=== PATIENT | male | born 1970 | race Caucasian/White ===

== ENCOUNTER 2018-12-20 14:34 | Outpatient (CLI) | payer BC, SELFPAY ==
[2018-12-24 06:02] LABS: Testosterone, Total 439 ng/dL (240-950)
== END 2018-12-20 14:54 ==
PROVIDERS: PCP Emergency Medicine; Visit Provider Urology
DX: E29.1 Testicular hypofunction (principal)
CPT/HCPCS: 36415; 84403

== ENCOUNTER 2019-01-27 14:19 | Outpatient (CLI) | payer BC, SELFPAY ==
[2019-01-30 09:45] LABS: Testosterone, Total 1230 ng/dL (240-950)
== END 2019-01-27 14:39 ==
PROVIDERS: PCP Emergency Medicine; Visit Provider Urology
DX: E29.1 Testicular hypofunction (principal)
CPT/HCPCS: 36415; 84403

== ENCOUNTER 2020-08-12 08:49 | Outpatient (CLI) | payer BC, SELFPAY ==
[2020-08-16 01:04] LABS: Patient Race White; SARS-CoV-2 RNA Undetected (Undetected); SARS-CoV-2 Specimen Source Nasal
== END 2020-08-12 09:09 ==
PROVIDERS: PCP Emergency Medicine; Visit Provider Emergency Medicine
DX: Z11.59 Encounter for screening for other viral diseases (principal)
CPT/HCPCS: U0003

== ENCOUNTER 2022-03-29 14:37 | Outpatient (CLI) | payer BC, SELFPAY ==
[2022-03-29 14:27] LABS: Hemoglobin A1C 5.3 % (<5.7)
[2022-03-29 15:20] LABS: Anion Gap 7.4 mmol/L (3-11); BUN 16 mg/dL (7-18); CO2 26.6 mmol/L (21.0-32.0); CREATININE 1.4 mg/dL (0.70-1.30); Calcium 8.5 mg/dL (8.5-10.1); Calculated LDL 164 mg/dL (<100); Chloride 102 mmol/L (98-107); Cholesterol 258 mg/dL (<200); Estimated GFR 52.81 (mL/min/1.73m2); Glucose 118 mg/dL (74-106); HDL Cholesterol 46 mg/dL (40-60); Potassium 3.7 mmol/L (3.5-5.1); Sodium 136 mmol/L (136-145); TSH 2.06 uIU/mL (0.36-3.74); Triglyceride 243 mg/dL (<150)
[2022-03-29 23:05] LABS: PSA, Diagnostic 0.5 ng/mL (<=3.5)
[2022-03-29 23:16] LABS: ALT 84 U/L (16-63); AST 54 U/L (15-37); Albumin 3.8 g/dL (3.4-5.0); Alkaline Phosphatase 72 U/L (46-116); Bilirubin, Direct 0.2 mg/dL (0.0-0.2); Bilirubin, Total 0.9 mg/dL (0.2-1.0); Total Protein 7.9 g/dL (6.4-8.2)
[2022-05-04 11:03] LABS: Lab Add On Test Done
== END 2022-03-29 14:38 | disposition home or self-care (01) ==
PROVIDERS: Emergency Medicine; PCP Family Medicine; Visit Provider Urology
DX: E11.9 Type 2 diabetes mellitus without complications (principal); E78.5 Hyperlipidemia, unspecified; I10 Essential (primary) hypertension; E03.9 Hypothyroidism, unspecified; E29.1 Testicular hypofunction; R97.20 Elevated prostate specific antigen [PSA]
CPT/HCPCS: 36415; 80048; 80061; 80076; 83036; 84153; 84443

== ENCOUNTER 2022-07-03 06:19 | Day surgery (SDC) | payer BC, SELFPAY ==
--- NOTE | 2022-07-03 06:36 | COLE_ITS ---
Colonoscopy Report Date of procedure: 07/03/22 Pre-op diagnosis general: Colon Cancer Screening Post-op diagnosis procedure note: other (colorectal polyps and diverticulosis) Procedure: Colonoscopy with polypectomy Surgeon: Glenna Scott Anesthesia Type: General:No Airway Estimated blood loss (mL): 3 Pathology: other (cecal polyps x2, ascening polyps x2, Transverse polyps x2, descending polyp) Complications: None Disposition: same day Indications: The patient? is a pleasant? 52-year-old male who is here to discuss another screening colonoscopy. ? He denies any changes in bowel habits, melena, hematochezia, unintentional weight loss or family history of colon cancer.? The procedure and risks were discussed.? The prep was reviewed in detail.? Risks, benefits and complications have been reviewed. Complications include but are not limited to bleeding, pain, perforation, missed small lesion/polyp, sore throat, aspiration and adverse reaction to the medications. Questions were entertained and answered to their satisfaction and they wished to proceed. No guarantees were given or implied. Prep: Miralax/Dulcolax Procedure Start Time: 07:29 Procedure End Time: 08:01 Retraction Time: 27 minutes Findings: multiple small sessile polyps Mild napoles diverticulosis Procedure Description: After informed consent was obtained the patient was taken to the procedure room and placed in a left decubitous position. Monitors were applied and a time out was done. The patients name, date of , procedure, allergies to medications and metal in their body was reviewed. The patient was then sedated. Once sedated and comfortable a rectal exam was done. External exam was normal. Internal exam revealed a normal sphincter tone and no palpable masses. The prostate felt smooth. The scope was then introduced and retro-flexed. No internal hemorrhoids, polyps or masses were identified on retro-flexion. The scope was then advanced to the cecum without difficulty. The ileocecal vlave and appendiceal orifice were identified. The prep was good. The scope was then slowly retracted over 27 minutes back into the rectum. Polyps were removed with cold forceps in the cecum, ascending and transverse colon and with a cold snare in the descending colon. There was mild napoles diverticulosis noted. The scope was removed and the patient was woken up and taken back to Same day surgery in stable condition. The patient tolerated the procedure well and there were no immediate com plications.
--- NOTE | 2022-07-03 06:38 | W.PM.DSUDISC ---
Discharge Plan Disposition Patient Disposition: HOME Condition: Good Discharge Details Reason For Visit: colonoscopy Attending Provider: Glenna Scott Primary Care Provider: Roxanna oSsa Home Meds and New Rx's Prescriptions: Continued testosterone enanthate 50 mg/0.5 mL auto-injector 50 mg subcut QWEEK amlodipine 5 mg tablet 5 mg PO DAILY Qty: 90 3RF losartan 100 mg tablet 100 mg PO DAILY Qty: 90 3RF Discontinued bisacodyl [Dulcolax (bisacodyl)] 5 mg tablet,delayed release (DR/EC) 5 mg PO ONCE Qty: 4 0RF Rx Instructions: Take according to provider's instructions for colonoscopy prep. polyethylene glycol 3350 17 gram/dose powder 17 g PO ONCE Qty: 238 0RF Rx Instructions: To be taken as directed by prescriber's office for colonoscopy prep. Discharge Instructions Instructions: Colorectal Polyps (DC), Diverticulosis (DC) Additional Instructions: Findings:5 polyps Diverticula Follow up: 3-5 years depending on the pathology results Please call if you develop: fevers >101.5 Nausea or Vomiting Abdominal pain that is not transient Rectal bleeding that is more then a tbsp A hard abdomen and inability to pass gas DAY SURGERY UNIT POST ENDOSCOPY INSTRUCTIONS Instructions for everyone who is given Anesthesia: For your safety, please do the following for the next 24 Hours: a. Do not drive or operate dangerous equipment b. Do not drink alcohol beverages or use any recreational drugs for the first 24 hours or while taking pain medications. The medications in your body may have a reaction that can be dangerous. c. Do not make any important decisions or sign any important papers 1. Generally there are no restrictions on your activity after a day or so has gone by, but you may feel a bit fatigued for a few days. 2. After you arrive home you may have a light meal and return to a normal diet as you can tolerate it without feeling sick to your stomach. 3. After surgery, you may feel pain or discomfort. This should be only transient, but if it persists please contact your doctor. 4. If there are any questions regarding the findings of your procedure, please feel free to contact your doctor. 6. If you are unable to contact your doctor with a problem, contact the hospital at [phone]. 7. Continue all your regular medications unless directed otherwise. I understand the above instructions and have no questions. Signature of Patient or Responsible Adult Escort Date/Time Name of Responsible Adult Escort Signature of Nurse Date/Time Activity:: Activity as Tolerated Diet:: high fiber diet Discharge Orders Discharge Orders: Discharge Order (Routine); Ordered 07/03/22 Ordered By: Glenna Scott
[2022-07-03 06:46] VITALS: BP 153/100; PULSE 76; RESP 16; TEMP 36.7; O2SAT 97
[2022-07-03] MEDS: Normal Saline 1,000 ML 80 ML IV (07:00)
--- NOTE | 2022-07-03 07:04 | W.ANESPRE ---
General Info Date of Service Date Performed: 07/03/22 Height: 6 ft 1 in Weight: 129.5 kg Body Mass Index (BMI): 37.6 Surgical Procedure: Operation Date: 07/03/22 07:35 Proposed Procedure Side Surgeon p Blaze Scott MD Meds Allergies and Home Medications Allergies Allergy/AdvReac Type Severity Reaction Status Date / Time lisinopril AdvReac Mild cough Unverified 06/30/22 10:57 Home Medication Medication Instructions Recorded amlodipine 5 mg tablet 5 mg PO DAILY #90 tabs 04/05/22 losartan 100 mg tablet 100 mg PO DAILY #90 tab-caps 04/05/22 bisacodyl 5 mg tablet,delayed 5 mg PO ONCE #4 tabs 06/06/22 release (Dulcolax (bisacodyl)) polyethylene glycol 3350 17 17 g PO ONCE #238 grams 06/06/22 gram/dose oral powder testosterone enanthate 50 mg/0.5 50 mg subcut QWEEK 06/06/22 mL subcutaneous auto-injector Current Visit Medications: Current Medications Generic Name Dose Route Start Last Admin Trade Name Freq PRN Reason Stop Dose Admin Hyoscyamine Sulfate 0.125 mg 07/03/22 06:39 Hyoscyamine 0.125 Mg Sl/Oral/Chew SL DIRECTED PRN Sodium Chloride 1,000 mls @ 80 mls/hr 07/03/22 06:00 07/03/22 07:00 Saline 1000ml Bag IV 07/17/22 23:59 80 mls/hr INFUSION AMAURY Administration IV Miscellaneous Supplies 1 each 07/03/22 06:00 Iv Access IV 07/30/22 23:59 DIRECTED AMAURY Ondansetron HCl 4 mg 07/03/22 06:39 Ondansetron 4 Mg/2 Ml Vial IVP Q4H PRN PRN Nausea / Vomiting Sodium Chloride 0 ml 07/03/22 06:00 Normal Saline Flush 10 Ml Syr IV 07/30/22 23:59 PRN PRN Sodium Chloride 0 ml 07/03/22 06:00 Normal Saline 10 Ml Vial IJ 07/30/22 23:59 DIRECTED PRN Sterile Water 0 ml 07/03/22 06:00 Water,Injection,Sterile 10 Ml Vial IJ 07/30/22 23:59 DIRECTED PRN PFSH Active Problems Active Problems: Problem Status Onset Code Essential hypertension 12/29/17 I10 Hypogonadism in male 09/28/17 E29.1 Pituitary adenoma 09/28/17 D35.2 COVID-19 U07.1 Actinic keratoses L57.0 Obesity E66.9 Chronic kidney disease, stage 3 N18.30 Hyperlipidemia E78.5 Elevated liver enzymes R74.8 Screening for colon cancer Z12.11 Surgical History Surgical History (Updated 07/03/22 @ 06:46 by Danielle Frank) H/O arthroscopic knee surgery right Tobacco Smoking/Tobacco Use Status: Current-Occasional Tobacco Type: smokeless tobacco Smokeless tobacco user: chewing tobacco Second hand exposure: No Alcohol Alcohol Intake: current Alcohol intake frequency: a few times a week Alcohol type: hard liquor Substance Use Substance use: Never Substance use type: does not use Vital Signs and Lab Results Vital Signs Most Recent Vital Signs in EMR: Most Recent Vital Signs Temp Pulse Resp BP Pulse Ox 36.7 C 76 16 153/100 H 97 07/03/22 06:46 07/03/22 06:46 07/03/22 06:46 07/03/22 06:46 07/03/22 06:46 Lab Results Blood Type / Crossmatch: No Data to Display Complete Blood Count: No Data to Display Complete Metabolic Panel: No Data to Display Liver Function Panel: No Data to Display Coagulation Panel: No Data to Display Cardiac Panel: No Data to Display Arterial Blood Gas: No Data to Display Venous Blood Gas: No Data to Display Pancreas Panel: No Data to Display Thyroid Panel: No Data to Display Infectious Disease: No Data to Display Blood Cultures: No Data to Display Toxicology Panel: No Data to Display Anesthesia Assessment and Plan Anesthesia History Personal History: No History of Anesthesia Complications Family History: No Family History of Anesthesia Complications Exercise Tolerance Exercise Tolerance: Metabolic Equivalents>4 Pertinent Negatives Pertinent Negatives: No Symptoms of GERD, No Major Cardiovascular Symptoms or Complaints, No Major Pulmonary Symptoms or Complaints (Wears CPAP everynight ) and No History of CVA/TIA Cardiac & Pulmonary Exam Cardiac Exam: Normal S1/S2 Heart Sounds Pulmonary Exam: Clear Bilateral Breath Sounds Implantable Cardiac Device Does patient have a Pacemaker or an ICD?: No Airway Exam Known Difficult Airway: No Mallampati Class: 4 Mouth Opening: Narrow (< 3cm) Thyromental Distance: Less than 3 cm Facial Hair: Full Asif Neck Range of Motion: Limited ROM Neck Circumference: Thick Teeth Condition: Normal Dentition ASA Classification ASA Score: ASA 2 Emergency Case?: No NPO Status NPO Status: NPO Clears >2 hours, Solids >8 hours Anesthesia Plan Resuscitation Status: Full Code Anesthesia Technique: General Anesthesia Airway Planned: Natural Airway Monitors Used: Standard Monitors
[2022-07-03 07:07] VITALS: BMI 37.6
--- NOTE | 2022-07-03 07:36 | BOWEL_PTH ---
PATIENT: Michael Herrera LOC: [facility] U#:[id number] AGE/SX: 52/M ROOM: RE07/03/[address]: Glenna Scott MD : [id number] BED: DIS: 07/03/2022 SPEC #: [id number] RECD: 07/03/22 12:14 STATUS: FELICIANO RE #: [id number] ORI: 07/03/22 07:[address]: Glenna Scott DEPT: Surgical Specimen RECD BY: Jerrica Germain ENTERED: 07/03/22 12:17 SP TYPE: Bowel OTHR DR: Roxanna Sosa, PhD SMALL EQUIPMENT OPERATOR Tissues: 1 - BIOPSY BOWEL 2 - BIOPSY BOWEL 3 - BIOPSY BOWEL 4 - BIOPSY BOWEL Procedures: GROSS AND MICRO LEVEL 4 Comments: [id number]
[2022-07-03 08:15] VITALS: BP 152/83; PULSE 71; RESP 18; TEMP 36.3; O2SAT 97
--- NOTE | 2022-07-03 08:16 | W.ANESPOSTOP ---
Postoperative Evaluation Date, Time and Location Date Performed: 07/03/22 Time Performed: 08:16 Patient Location: Day Surgery Unit Vital Signs Most Recent Imported Vital Signs: Most Recent Vital Signs Temp Pulse Resp BP Pulse Ox 36.7 C 76 16 153/100 H 97 07/03/22 06:46 07/03/22 06:46 07/03/22 06:46 07/03/22 06:46 07/03/22 06:46 Most Recent Manually Entered Vital Signs: Adult Blood Pressure: 152/83 Heart Rate: 67 Respirations: 12 Oxygen Saturation (%): 97 Temperature (C): 36.3 C Pain Score (0-10 Scale): 0 Pain Score Most Recent Pain Score: Most Recent Pain Score Pain Level 0 07/03/22 06:46 Assessment Mental Status: Awake (Alert & Oriented to Patient Baseline) Airway and Respiratory Function: Patent airway with normal (patient baseline) respiratory exam Cardiovascular Function: Hemodynamically Stable Hydration Status: Adequately Hydrated Nausea & Vomiting: No Nausea or Vomiting Pain: Pt. Denies Any Pain Peripheral Nerve Block: Patient did not receive a nerve block
[2022-07-03 08:17] VITALS: BP 152/83; PULSE 67; RESP 12; TEMPC 36.3; O2SAT 97
[2022-07-03 08:30] VITALS: BP 145/100; PULSE 64; RESP 18; TEMP 36.4; O2SAT 98
== END 2022-07-03 08:55 | disposition home or self-care (01) ==
PROVIDERS: PCP Nurse Practitioner; Visit Provider Surgery
PROC: 0DJD8ZZ Inspection of Lower Intestinal Tract, Via Natural or Artificial Opening Endoscopic (ICD-10-PCS; CPT 45378; principal; 2022-07-03 07:30)
DX: Z12.11 Encounter for screening for malignant neoplasm of colon (principal); K63.5 Polyp of colon; K57.30 Diverticulosis of large intestine without perforation or abscess without bleeding; K63.89 Other specified diseases of intestine
CPT/HCPCS: 45385; 45380; 88305; J2250; J2704

== ENCOUNTER 2023-01-03 09:38 | Outpatient (CLI) | payer BC, SELFPAY ==
--- OUTSIDE RECORDS SUMMARY | 2023-01-03 09:40 | XMS_ITS ---
Author Name Clarissa Middleton Address [address], [place] [id number] Organization [facility] Address [address], [place] [id number] Care Team Providers Care Aircraft Time Clerk Name Role Phone Clarissa Middleton Unavailable [phone] PROBLEMS Type Condition ICD9-CM Code MHV50-DY Code Onset Dates Condition Status SNOMED Code Problem Hypertension I10 Active 87709730 Problem Metabolic syndrome E88.81 Active 96276 2006 Problem Erectile dysfunction N52.9 Active 860 752931 Problem Phimosis 605 Active 282519460 Problem Essential hypertension I10 Active Problem Erectile Dysfunction 607.84 Active 860 753441 Problem Hypogonadism in male E29.1 Active Problem Hypogonadism, testicular 257.2 Active 82202071 Problem 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 50134879 Problem Phimosis N47.1 Active 317095496 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 62425670 Problem Testicular hypofunction E29.1 Active ALLERGIES No Known Allergies ENCOUNTERS Encounter Location Date Diagnosis [facility] [address] [id number] Jun, Hypogonadism in male E29.[address] [facility] [address] [id number] Jun, Hypogonadism in male E29.[address] [facility] [address] [id number] Mar, Testicular hypofunction E29.[address] [facility] [address] [place] [address] [id number] Dec, Hypogonadism in male E29.1 [facility] [address] [place] [address] [id number] Jun, [facility] [address] [place] [address] [id number] May, Hypogonadism in male E29.1 [facility] [address] [place] [address] [id number] Mar, Hypogonadism in male E29.1 [facility] [address] [place] [address] [id number] Mar, [facility] [address] [place] [address] [id number] Nov, Hypogonadism in male E29.1 [facility] [address] [place] [address] [id number] Nov, Hypogonadism in male E29.[address] [facility] [address] [id number] Nov, Hypogonadism in male E29.1 [facility] [address] [place] [address] [id number] Mar, [facility] [address] [id number] Mar, Hypogonadism in male E29.1 and Family history of prostate cancer Z80.42 [facility] [address] [place] [address] [id number] Mar, 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 and Prostate cancer screening Z12.[address] [facility] [address] [id number] Aug, 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 and Hypogonadism in male E29.[address] [facility] [address] [place] [address] [id number] Aug, Hypogonadism in male E29.1 [facility] [address] [place] [address] [id number] Mar, 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 ; Prostate cancer screening Z12.5 ; Metabolic syndrome E88.81 and Essential hypertension I10 [facility] [address] [place] [address] [id number] Mar, [facility] [address] [place] [address] [id number] January, [facility] [address] [place] [address] [id number] Nov, 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 [facility] [address] [id number] Nov, Testicular hypofunction E29.1 [facility] [address] [place] [address] [id number] Oct, [facility] [address] [place] [address] [id number] Oct, 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 [facility] [address] [id number] May, [facility] [address] [id number] Mar, 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 [facility] [address] [id number] Mar, 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 ; 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 ; Phimosis N47.1 ; Erectile dysfunction N52.9 ; Prostate cancer screening Z12.5 ; Metabolic syndrome E88.81 and Hypertension I10 [facility] [address] [id number] Mar, 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 and Long-term use of high-risk medication Z79.899 [facility] [address] [id number] Dec, [facility] [address] [id number] Nov, Erectile dysfunction N52.[address] [facility] [address] [id number] Jul, 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 ; Phimosis N47.1 ; 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 ; Erectile dysfunction N52.9 ; Hypertension I10 and Metabolic syndrome E88.81 [facility] [address] [id number] Jul, [facility] [address] [place] [address] [id number] Jun, Erectile dysfunction N52.9 [facility] [address] [place] [address] [id number] Jun, [facility] [address] [place] [address] [id number] Jul, Hx of hypogonadism Z86.39 ; Erectile dysfunction N52.9 ; 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 and Hypertension I10 [facility] [address] [place] [address] [id number] Jul, [facility] [address] [place] [address] [id number] Jun, Hypogonadism in male 257.2 and Low testosterone 257.2 [facility] [address] [place] [address] [id number] Nov, [facility] [address] [place] [address] [id number] Jun, [facility] [address] [place] [address] [id number] Jun, Hypogonadism, testicular 257.2 [facility] [address] [place] [address] [id number] May, [facility] [address] [place] [address] [id number] May, [facility] [address] [place] [address] [id number] Jun, Hypogonadism, testicular 257.2 [facility] [address] [place] [address] [id number] Mar, Hypogonadism, testicular 257.2 [facility] [address] [place] [address] [id number] Mar, Hypogonadism, testicular 257.2 [facility] [address] [place] [address] [id number] Nov, Erectile Dysfunction 607.84 and Hypogonadism, testicular 257.2 [facility] [address] [place] [address] [id number] Aug, [facility] [address] [place] [address] [place] [address] [id number] Aug, [facility] [address] [place] [address] [id number] Jun, [facility] [address] [place] [address] [id number] Jun, Hypogonadism, testicular 257.2 and Phimosis 605 [facility] [address] [place] [address] [id number] Jun, Hypogonadism, testicular 257.2 [facility] [address] [place] [address] [id number] Dec, [facility] [address] [place] [address] [id number] Nov, Hypogonadism, testicular 257.2 and Phimosis 605 [facility] [address] [place] [address] [id number] Oct, Posthitis 607.1 ; Hypogonadism, testicular 257.2 and Dysuria 788.[address] [facility] [address] [place] [address] [id number] Oct, IMMUNIZATIONS No Known Immunizations SOCIAL HISTORY Qualifiers Date Current Smoker REASON FOR REFERRAL FUNCTIONAL STATUS PLAN OF CARE Activity Details VITAL SIGNS Height 73 in 2022-06-12 Height 73 in 2021-04-25 Height 73 in 2020-04-01 Height 73 in 2019-03-25 Height 73 in 2018-03-26 Height 73 in 2016-07-20 Height 73 in 2015-07-15 Height 73 in 2014-06-29 Height N/A in 2013-06-26 Height N/A in 2012-12-26 Height 73 in 2011-10-25 Weight 285 lbs 2022-06-12 Weight 280 lbs 2021-04-25 Weight 280 lbs 2020-04-01 Weight 286.8 lbs 2019-03-25 Weight 287 lb 2 oz lbs 2018-03-26 Weight 279.0 lbs 2016-07-20 Weight 274 lb 8 oz lbs 2015-07-15 Weight 268 lbs 2014-06-29 Weight 261.8 lbs 2013-06-26 Weight 263 lbs 2011-10-25 Temperature 97.0 degrees Fahrenheit Temperature 97.2 degrees Fahrenheit Temperature 96.9 degrees Fahrenheit Temperature Temporal:97.7 degrees Fahrenheit 2018-03-26 Temperature 98.8 degrees Fahrenheit Temperature 97.0 degrees Fahrenheit Heart Rate 82 /min 2022-06-12 Heart Rate 86 /min 2021-04-25 Heart Rate 82 /min 2020-04-01 Heart Rate 100 /min 2019-03-25 Heart Rate 79 /min 2018-03-26 Heart Rate 69 /min 2016-07-20 Heart Rate 82 /min 2015-07-15 Heart Rate 82 /min 2014-06-29 Heart Rate 72 /min 2013-06-26 Heart Rate 72 /min 2011-10-25 Oximetry 98 2022-06-12 Oximetry 99 2021-04-25 Oximetry 98 2020-04-01 Oximetry 99 2019-03-25 Oximetry 100 2018-03-26 Oximetry 100 2015-07-15 Respiratory Rate 14 /min 2022-06-12 Respiratory Rate 16 /min 2018-03-26 Respiratory Rate 16 /min 2012-12-26 Respiratory Rate 18 /min 2011-10-25 BMI 37.60 kg/m2 2022-06-12 BMI 36.94 kg/m2 2021-04-25 BMI 36.94 kg/m2 2020-04-01 BMI 37.83 kg/m2 2019-03-25 BMI 37.88 kg/m2 2018-03-26 BMI 36.81 kg/m2 2016-07-20 BMI 36.21 kg/m2 2015-07-15 BMI 35.35 kg/m2 2014-06-29 BMI 34.54 kg/m2 2013-06-26 BMI 34.69 kg/m2 2011-10-25 Blood pressure systolic 140 mm Hg Blood pressure diastolic 92 mm Hg 2021-03 MEDICATIONS Medication Instructions Dosage Frequency Start Date End Date Duration Status Testosterone Cypionate 200 MG/ML Intramuscular q 2 weeks 1 ml Jun, 30 days Active Losartan Potassium 100 MG take 1 tablet by mouth once daily 90 Active amLODIPine Besylate 5 MG 30 Active PROCEDURES Procedure Date Ordered Result Body Site URINALYSIS NONAUTO W/O SCOPE Jun 12, 2022 URINALYSIS NONAUTO W/O SCOPE Jun 29, 2014 URINALYSIS, DIPSTICK W/MICROSCOP Jul 20, 2016 URINALYSIS, AUTO W/SCOPE March 25, 2019 URINALYSIS NONAUTO W/O SCOPE April 25, 2021 URINALYSIS NONAUTO W/O SCOPE Oct 25, 2011 URINALYSIS, DIPSTICK W/MICROSCOP Jul 15, 2015 URINALYSIS NONAUTO W/O SCOPE April 01, 2020 URINALYSIS, DIPSTICK W/MICROSCOP March 26, 2018 BLADDER SCAN Oct 25, 2011 RESULTS Name Result Date Reference Range URINALYSIS COMPLETE 2022-06-12 COLOR YELLOW YELLOW CLARITY CLEAR CLEAR SPECIFIC GRAVITY 1.020 1.000-1.030 pH 6.0 5.0-8.0 PROTEIN NEGATIVE NEGATIVE GLUCOSE NEGATIVE NEGATIVE KETONES NEGATIVE NEGATIVE UROBILINOGEN 0.2 0.2 E.U./DL BILIRUBIN NEGATIVE NEGATIVE BLOOD TRACE-INTACT NEGATIVE LEUKOCYTES NEGATIVE NEGATIVE NITRITES NEGATIVE NEGATIVE RBCs 0-3 0-3 SQ EPITHELIAL CELLS 0-3 0-3 CLUE CELLS NONE SEEN RTE CELLS 0-3 TRANSITIONAL EPIs 0-3 BACTERIA NONE SEEN NONE SEEN CRYSTALS NONE SEEN HYALINE CASTS NONE SEEN GRANULAR CASTS NONE SEEN RBC CASTS NONE SEEN WBC CASTS NONE SEEN WAXY CASTS NONE SEEN CELLULAR CASTS NONE SEEN YEAST NONE SEEN TRICHOMONADS NONE SEEN SPERMATOZOA SEEN NONE SEEN URINE CULTURE NO NO [facility] (URO) 2022-06-12 Color Yellow Clarity Clear Bilirubin neg Ketones neg Specific [place] 1.020 Blood trace-lysed Glucose neg ph 6.0 Protein neg Leukocytes neg Nitrates neg Uro 0.2 Leukocytes TESTOSTERONE, FREE & TOTAL ([id number]) 06-12 Testosterone, Serum [phone] Free Testosterone(Direct) 5.0 7. 2-24.0 PSA - DIAGNOSTIC 2022-03-29 PROSTATE SPECIFIC ANTIGEN DIAGNOSTIC PSA HEADER URINALYSIS DIP w/REFLEX MICRO 2021-04-25 COLOR Yellow YELLOW CLARITY Cloudy CLEAR SPECIFIC GRAVITY 1.025 1.000-1.030 pH 5.5 5.0-8.0 PROTEIN Negative NEGATIVE GLUCOSE Negative NEGATIVE KETONES Negative NEGATIVE UROBILINOGEN 1.0 E.U./dL 0.2 E.U./DL BILIRUBIN Negative NEGATIVE BLOOD Negative NEGATIVE LEUKOCYTES Negative NEGATIVE NITRITES Negative NEGATIVE [facility] (URO) 2021-04-25 Color Yellow Clarity Clear Bilirubin neg Ketones neg Specific [place] 1.025 Blood small Glucose neg ph 5.5 Protein trace Leukocytes neg Nitrates neg Uro 0.2 Leukocytes PSA - DIAGNOSTIC 2021-04-21 PSA (DIAGNOSTIC) 0.526 <=4.000 TESTOSTERONE, FREE & TOTAL ([id number]) 04-21 Testosterone, Serum [phone] Free Testosterone(Direct) 2.7 7. 2-24.0 URINALYSIS COMPLETE 2020-04-01 COLOR Sarahy YELLOW CLARITY Clear CLEAR SPECIFIC GRAVITY 1.025 1.000-1.030 pH 5.5 5.0-8.0 PROTEIN Trace NEGATIVE GLUCOSE Negative NEGATIVE KETONES Negative NEGATIVE UROBILINOGEN 0.2 E.U./dL 0.2 E.U./DL BILIRUBIN Negative NEGATIVE BLOOD Trace-intact NEGATIVE LEUKOCYTES Negative NEGATIVE NITRITES Negative NEGATIVE RBCs 0-3 0-3 SQ EPITHELIAL CELLS 0-3 0-3 CLUE CELLS NONE SEEN RTE CELLS 0-3 TRANSITIONAL EPIs 0-3 BACTERIA 1+ NONE SEEN CRYSTALS FEW NONE SEEN HYALINE CASTS NONE SEEN GRANULAR CASTS NONE SEEN RBC CASTS NONE SEEN WBC CASTS NONE SEEN WAXY CASTS NONE SEEN CELLULAR CASTS NONE SEEN YEAST NONE SEEN TRICHOMONADS NONE SEEN SPERMATOZOA SEEN NONE SEEN URINE CULTURE NO NO [facility] (URO) 2020-04-01 Color Yellow Clarity Clear Bilirubin neg Ketones neg Specific [place] 1.025 Blood trace-intact Glucose neg ph 6.0 Protein neg Leukocytes neg Nitrates neg Uro 0.2 Leukocytes PSA - SCREENING 2020-03-25 PSA (SCREEN) 1.599 <=4.000 TESTOSTERONE, TOTAL 2020-03-25 TESTOSTERONE 171.6 175.0-781.0 URINALYSIS AUTO W/SCOPE 2019-03-25 COLOR Yellow CLARITY Clear GLU neg KRISTAL neg KET neg BLO small PH 5.5 PRO trace NIT neg JUAN neg TESTOSTERONE, TOTAL 2019-01-27 Testosterone, Serum Comment TESTOSTERONE, TOTAL 2018-12-20 Testosterone, Serum Comment URINALYSIS DIP W/SCOPE 2018-03-26 CLARITY clear COLOR Sarahy NITRITES neg REDUCING SUBSTANCES SPECIFIC GRAVITY >=1.030 UROBILINOGEN 1.0 BILIRUBIN neg BLOOD small GLUCOSE neg KETONES neg pH 5.5 PROTEIN 30 LEUKOCYTES neg CBC, WITH AUTO DIFF 2018-03-15 WBC WBC SUSPECT FLAGS RBC RBC SUSPECT FLAG HEMOGLOBIN HEMATOCRIT MCV MCH MCHC PLATELETS RDW PLT SUSPECT FLAG MPV NEUTROPHIL % LYMPHS % MONOCYTES % EOSINOPHILS % BASOPHILS % NEUTROPHILS # LYMPHOCYTES # MONOCYTES # EOSINOPHILS # BASOPHILS # MANUAL DIFFERENTIAL? PATH? PSR COMMENT SMEAR? SMEAR COMMENT SMEAR COMMENT LIPID PROFILE 2018-03-15 CHOLESTEROL TRIGLYCERIDES HDL CHOLESTEROL LDL (CALCULATED) LDL CHOLESTEROL RISK RATIO RISK RATIO INTERP PSA SCREENING 2018-03-15 PSA PSA SCREENING TESTOSTERONE, TOTAL 2018-03-15 Testosterone, Serum Comment URINALYSIS DIP W/SCOPE 2016-07-20 CLARITY CLEAR COLOR YELLOW NITRITES NEG REDUCING SUBSTANCES SPECIFIC GRAVITY UROBILINOGEN BILIRUBIN BLOOD NEG GLUCOSE NEG KETONES NEG pH 7 PROTEIN NEG LEUKOCYTES NEG CBC, WITH AUTO DIFF WBC WBC SUSPECT FLAGS RBC RBC SUSPECT FLAG HEMOGLOBIN HEMATOCRIT MCV MCH MCHC PLATELETS RDW PLT SUSPECT FLAG MPV NEUTROPHIL % LYMPHS % MONOCYTES % EOSINOPHILS % BASOPHILS % NEUTROPHILS # LYMPHOCYTES # MONOCYTES # EOSINOPHILS # BASOPHILS # MANUAL DIFFERENTIAL? PATH? PSR COMMENT SMEAR? SMEAR COMMENT SMEAR COMMENT LIPID PROFILE CHOLESTEROL TRIGLYCERIDES HDL CHOLESTEROL LDL (CALCULATED) LDL CHOLESTEROL RISK RATIO RISK RATIO INTERP PSA - SCREENING PROSTATE SPECIFIC ANTIGEN SCREENING PSA HEADER TESTOSTERONE, TOTAL Testosterone, Serum Comment URINALYSIS DIP W/SCOPE 2015-07-15 CLARITY Clear COLOR Yellow NITRITES Neg REDUCING SUBSTANCES SPECIFIC GRAVITY UROBILINOGEN BILIRUBIN BLOOD Trace GLUCOSE Neg KETONES Neg pH 5 PROTEIN Neg LEUKOCYTES Neg PSA - DIAGNOSTIC PROSTATE SPECIFIC ANTIGEN DIAGNOSTIC PSA HEADER [facility] (URO) 2014-06-29 Color yellow Clarity clear Bilirubin Ketones neg Specific [place] Blood trace Glucose neg ph 6 Protein trace Leukocytes neg Nitrates neg Uro Leukocytes PSA - DIAGNOSTIC PROSTATE SPECIFIC ANTIGEN DIAGNOSTIC PSA HEADER PSA - SCREENING PROSTATE SPECIFIC ANTIGEN SCREENING PSA HEADER TESTOSTERONE, FREE & TOTAL ([id number]) Free Testosterone (Direct) Testosterone, Serum Comment PSA - SCREENING PROSTATE SPECIFIC ANTIGEN SCREENING PSA HEADER TESTOSTERONE, FREE & TOTAL ([id number]) Free Testosterone (Direct) Testosterone, Serum Comment TESTOSTERONE, FREE & TOTAL ([id number]) Free Testosterone (Direct) Testosterone, Serum Comment PSA - SCREENING PROSTATE SPECIFIC ANTIGEN SCREENING PSA HEADER [facility] (URO) Color yellow Clarity clear Bilirubin Ketones Specific [place] Blood Glucose ph Protein Leukocytes Nitrates Uro Leukocytes REASON FOR VISIT [facility]- 1y f/u, PT CALLED 06/14, [facility] 1 YR FOLLOW UP, [facility] 1 YR FOLLOW UP, [facility]- 1 year follow, Labs, Medication refill-completely out, medication approval, Lab results , [facility]- 1 year follow up Labs prior , Appt needed, Script , New medication , Med Refill/ Blood Test-Unable to LM 11/08, labs, [facility]- 1yr follow up, Blood work, [facility] 1 YR F/U, [facility] 1 YR F/U, RF request , [facility] 1YR F/U, testosterone level, testosterone test, called pt 01/01/19, [facility]- its time for an appt, Total T, Testosterone refill, testosterone refill , [facility]- F/U testosterone w/preclinic lab, [facility]- F/U testosterone w/preclinic lab, LMOM, Androgel pump refill request, Medication refill, [facility]-1 yr f/u w/labs prior, labs prior to appt10.20, refill request, [facility].. 1 yr F/U PSA Prior, [facility]-Prev pt, Rx request, [facility] 1yr w/psa, rx refill, Script, [facility] 6mth f/u labs-REC'D , ordered labs, rx refill, 6 MTH F/U, PSA .42 ON 12/23/12, 6 MTH F/U, PSA WEEK BEFORE, Androgel refill, [facility] test. level check- 28 on 06/07/12, uro, uro, labs, [facility] 4 WK F/U, LABS WEEK BEFORE (pt did labs yesterday and test. won't be back until sunday, psa is0.37), [facility] 4 WK F/U, LABS WEEK BEFORE, [facility] ?UTI?YEAST-PREV REC COSULT FOR CIRCUM, testosterone levels are being monitored, yeast inf Insurance Providers Health Insurance Type Health Plan Insurance Address Health Plan Insurance Phone Health Plan Insurance Name Health Plan Coverage Dates Member ID Patient Relationship to Subscriber Patient Address Patient Phone Patient Name Patient Date of Subscriber ID Subscriber Name Subscriber Date of Group No [place] [address] [facility] [id number] [place] self Michael Herrera [id number]
[2023-01-03 10:12] LABS: HCT 52.5 % (40.0-50.0); HGB 18.1 g/dL (13.5-17.5); MCH 31.9 pg (27.0-33.0); MCHC 34.5 % (32.0-36.0); MCV 92 fL (80-95); MPV 10.4 fL (8.0-11.0); Platelet Count 246 10^3/uL (130-400); RBC 5.68 10^6/uL (4.36-5.78); RDW 13.7 % (11.8-14.1); RDW-SD 46.3 fL; WBC 7.84 10^3/uL (4.4-10.8)
[2023-01-03 10:27] LABS: Bilirubin Negative (Negative); Blood Trace-lysed (Negative); Clarity Clear (Clear); Glucose Negative (Negative); Ketones Negative (Negative); Leukocyte Esterase Negative (Negative); Nitrite Negative (Negative); Specific Gravity >= 1.030 (1.005-1.025)
[2023-01-03 10:36] LABS: ALT 78 U/L (16-63); AST 37 U/L (15-37); Albumin 3.9 g/dL (3.4-5.0); Alkaline Phosphatase 69 U/L (46-116); Anion Gap 7.9 mmol/L (3-11); BUN 9 mg/dL (7-18); Bacteria Negative HPF (Negative); Bilirubin, Total 0.6 mg/dL (0.2-1.0); C & S Indicated? No; CO2 30.1 mmol/L (21.0-32.0); CREATININE 1.5 mg/dL (0.70-1.30); Calculated LDL 156 mg/dL (<100); Casts Negative LPF (Negative); Chloride 103 mmol/L (98-107); Cholesterol 220 mg/dL (<200); Crystals Negative HPF (Negative); Epithelial Cells Rare HPF (Negative); Estimated GFR 54.98 (mL/min/1.73m2); Glucose 98 mg/dL (74-106); HDL Cholesterol 39 mg/dL (40-60); Mucus Moderate (Negative); RBC 0-2 HPF (0-2); Sodium 141 mmol/L (136-145); Triglyceride 126 mg/dL (<150); WBC Negative HPF (0-5)
[2023-01-03 10:51] LABS: COMMENT (LAB VIEW ONLY) 341.06 mg/dL; Microalb ug/mg Crea 6.1 ug/mg Cr
[2023-01-04 10:23] LABS: Hepatitis B Surface Ag Negative (Negative)
[2023-01-04 10:25] LABS: Hepatitis C Ab w Rflx HCV PCR Negative (Negative)
[2023-01-04 10:45] LABS: HIV-1/2 Ag & Ab Screen Negative (Negative)
== END 2023-01-03 09:39 | disposition home or self-care (01) ==
LOC: LBO 09:39
PROVIDERS: PCP Nurse Practitioner Family; Visit Provider Family Medicine
DX: I10 Essential (primary) hypertension (principal); E78.5 Hyperlipidemia, unspecified; N18.30 Chronic kidney disease, stage 3 unspecified; R74.8 Abnormal levels of other serum enzymes; Z11.4 Encounter for screening for human immunodeficiency virus [HIV]; Z11.59 Encounter for screening for other viral diseases; R82.998 Other abnormal findings in urine
CPT/HCPCS: 36415; 80053; 80061; 85027; 86803; 87340; 87389; 81003; 81015; 82043; 82570

== ENCOUNTER 2023-03-29 13:36 | Outpatient (CLI) | payer BC, SELFPAY ==
[2023-03-29 14:11] LABS: ALT 57 U/L (16-63); AST 31 U/L (15-37); Alkaline Phosphatase 80 U/L (46-116); Anion Gap 10.2 mmol/L (3-11); BUN 14 mg/dL (7-18); CO2 25.8 mmol/L (21.0-32.0); CREATININE 1.5 mg/dL (0.70-1.30); Calcium 8.7 mg/dL (8.5-10.1); Chloride 101 mmol/L (98-107); Estimated GFR 54.64 (mL/min/1.73m2); Glucose 130 mg/dL (74-106); Potassium 3.8 mmol/L (3.5-5.1); Sodium 137 mmol/L (136-145); Total Protein 8.2 g/dL (6.4-8.2)
[2023-03-29 18:59] LABS: Lab Add On Test DONE
[2023-04-05 09:21] LABS: Testosterone, Free 4.91 ng/dL (3.87-14.7); Testosterone, Total 200 ng/dL (240-950)
== END 2023-03-29 13:37 | disposition home or self-care (01) ==
LOC: LBO 13:37
PROVIDERS: PCP Nurse Practitioner Family; Visit Provider Nurse Practitioner Family
DX: E66.9 Obesity, unspecified (principal); I10 Essential (primary) hypertension; N18.30 Chronic kidney disease, stage 3 unspecified; R74.8 Abnormal levels of other serum enzymes; E29.1 Testicular hypofunction
CPT/HCPCS: 36415; 80053; 84402; 84403

== ENCOUNTER 2023-07-02 08:29 | Outpatient (CLI) | payer BC, SELFPAY ==
[2023-07-02 13:06] LABS: Anion Gap 8.4 mmol/L (3-11); BUN 15 mg/dL (7-18); CO2 29.6 mmol/L (21.0-32.0); CREATININE 1.7 mg/dL (0.70-1.30); Calcium 9.7 mg/dL (8.5-10.1); Chloride 97 mmol/L (98-107); Estimated GFR 47.02 (mL/min/1.73m2); Glucose 102 mg/dL (74-106); Potassium 3.4 mmol/L (3.5-5.1); Sodium 135 mmol/L (136-145)
[2023-07-02 20:13] LABS: PSA, Diagnostic 0.6 ng/mL (<=3.5)
== END 2023-07-02 08:30 | disposition home or self-care (01) ==
LOC: LOS 08:29
PROVIDERS: PCP Nurse Practitioner Family; Referring Provider Nurse Practitioner Family; Visit Provider Nurse Practitioner Family
DX: I10 Essential (primary) hypertension (principal); E29.1 Testicular hypofunction; N18.30 Chronic kidney disease, stage 3 unspecified; R97.20 Elevated prostate specific antigen [PSA]
CPT/HCPCS: 36415; 80048; 84153

== ENCOUNTER 2024-02-13 15:39 | Outpatient (CLI) | payer BC, SELFPAY ==
--- NOTE | 2024-02-13 08:00 | DI.RAD_ITS ---
Exam(s) XR SHOULDER LT COMPLETE 2+V EXAM: XR SHOULDER LT COMPLETE 2+V CLINICAL HISTORY: LEFT SHOULDER PAIN. TECHNIQUE: 2D digital imaging was performed of the left shoulder. Two images were obtained. Grashe y and axillary views were obtained. COMPARISON: No exams were available for comparison FINDINGS: BONES: No acute fracture is present. No bony destructive lesion is seen. JOINTS: No dislocation present. There is mild disc space narrowing at the glenohumeral joint. The ac romioclavicular joint is within normal limits. SOFT TISSUE: Normal. IMPRESSION: Mild narrowing of the glenohumeral joint. DATA REPOSITORY: RADIATION DOSE DELIVERED:
== END 2024-02-13 15:40 | disposition home or self-care (01) ==
LOC: DIORS 15:39
PROVIDERS: PCP Nurse Practitioner Family; Visit Provider Student in an Organized Health Care Education/Training Program
DX: M25.512 Pain in left shoulder (principal)
CPT/HCPCS: 73030

== ENCOUNTER → 2024-02-29 00:06 | Outpatient (CLI) | payer BC, SELFPAY ==
--- NOTE | 2024-02-29 06:30 | DI.MRI_ITS ---
Exam(s) MR UPPER JOINT LT WO EXAM: MR UPPER JOINT LT WO CLINICAL HISTORY: EVALUATE FOR LABRAL TEAR, DISLOCATION, TEAR GLENOID LABRUM, S43.005A. TECHNIQUE: Multiplanar multisequence MRI was performed. COMPARISON: Plain films 13 Feb 2024 FINDINGS: BONES: There is no fracture or contusion pattern. JOINTS:The acromioclavicular joint is normal. The glenohumeral joint is shows a minimal amount of flu id. TENDONS: Supraspinatus: Mild thickening and intermediate signal. Small focal tear seen anteriorly. Infraspinatus: Unremarkable. Subscapularis: Unremarkable. Teres Minor: Unremarkable. Biceps and [place]: Unremarkable. MUSCLES: Unremarkable. GLENOID LABRUM: Area of the increased signal seen in anterior inferior labrum suspicious for tear. SOFT TISSUES: Unremarkable. OTHER: Subacromial and subdeltoid bursae show no fluid. Mild fluid in subcoracoid bursa. . IMPRESSION: Supraspinatus tendinosis with small partial tear anteriorly. Findings suspicious for tear of the anteroinferior labrum. DATA REPOSITORY:
== END ==
PROVIDERS: PCP Nurse Practitioner Family; Visit Provider Student in an Organized Health Care Education/Training Program
DX: S43.432A Superior glenoid labrum lesion of left shoulder, initial encounter; X58.XXXA Exposure to other specified factors, initial encounter
CPT/HCPCS: 73221

== ENCOUNTER 2024-07-14 10:59 | Outpatient (CLI) | payer BC, SELFPAY ==
[2024-07-14 11:13] LABS: ALT 39 U/L (16-63); AST 23 U/L (15-37); Albumin 3.5 g/dL (3.4-5.0); Alkaline Phosphatase 76 U/L (46-116); Anion Gap 9.2 mmol/L (3-11); BUN 10 mg/dL (7-18); Bilirubin, Total 0.66 mg/dL (0.2-1.0); CO2 27.8 mmol/L (21.0-32.0); CREATININE 1.4 mg/dL (0.70-1.30); Calcium 8.7 mg/dL (8.5-10.1); Calculated LDL 142 mg/dL (<100); Chloride 105 mmol/L (98-107); Cholesterol 209 mg/dL (<200); Estimated GFR 58.99 (mL/min/1.73m2); Glucose 98 mg/dL (74-106); HDL Cholesterol 50 mg/dL (40-60); Potassium 3.8 mmol/L (3.5-5.1); Sodium 142 mmol/L (136-145); Total Protein 7.6 g/dL (6.4-8.2); Triglyceride 86 mg/dL (<150)
[2024-07-14 18:29] LABS: PSA, Diagnostic 0.6 ng/mL (<=3.5)
== END 2024-07-14 11:00 | disposition home or self-care (01) ==
LOC: LBO 10:59
PROVIDERS: PCP Nurse Practitioner Family; Visit Provider Nurse Practitioner
DX: Z00.00 Encounter for general adult medical examination without abnormal findings (principal); I10 Essential (primary) hypertension; E78.5 Hyperlipidemia, unspecified; E29.1 Testicular hypofunction; D35.2 Benign neoplasm of pituitary gland; E66.9 Obesity, unspecified; N18.30 Chronic kidney disease, stage 3 unspecified; R74.8 Abnormal levels of other serum enzymes
CPT/HCPCS: 36415; 80053; 80061; 84153

== ENCOUNTER 2024-08-04 16:45 | Outpatient (CLI) | payer BC, SELFPAY ==
[2024-08-04 15:38] LABS: Abs Immature Grans 0.03 10^3/uL (0.0-0.06); Absolute Basophil Count 0.05 10^3/uL (0.0-0.2); Absolute Eosinophil Count 0.18 10^3/uL (0.0-0.7); Absolute Lymphocyte Count 1.91 10^3/uL (1.2-3.4); Absolute Monocyte Count 0.76 10^3/uL (0.1-0.8); Absolute Neutrophil Count 4.66 10^3/uL (1.2-6.7); Basophils % 0.7 %; Eosinophils % 2.4 %; HCT 52.1 % (40.0-50.0); HGB 18.3 g/dL (13.5-17.5); Immature Grans % 0.4 %; Lymphocytes % 25.2 %; MCHC 35.1 % (32.0-36.0); MCV 85 fL (80-95); MPV 10.5 fL (8.0-11.0); Neutrophils % 61.3 %; Platelet Count 278 10^3/uL (130-400); RBC 6.11 10^6/uL (4.36-5.78); RDW 13.8 % (11.8-14.1); RDW-SD 42.5 fL; WBC 7.59 10^3/uL (4.4-10.8)
[2024-08-04 16:06] LABS: Diff Comment Diff Reviewed; RBC Morphology Normal
[2024-08-09 14:12] LABS: Testosterone, Free 3.85 ng/dL (3.87-14.7); Testosterone, Total 138 ng/dL (240-950)
== END 2024-08-04 16:46 | disposition home or self-care (01) ==
LOC: LBO 16:45
PROVIDERS: PCP Nurse Practitioner Family; Visit Provider Nurse Practitioner
DX: E29.1 Testicular hypofunction (principal); Z51.81 Encounter for therapeutic drug level monitoring
CPT/HCPCS: 36415; 84402; 84403; 85025